=== PATIENT | female | born 1995 | race Caucasian/White ===

== ENCOUNTER → 2021-01-12 10:31 | Outpatient (BNVA) | payer BC, SELFPAY | PROVIDERS: Family Provider Family Medicine; PCP Family Medicine; Visit Provider Nurse Practitioner Family | DX: N39.0 Urinary tract infection, site not specified (principal) | CPT/HCPCS: 81000 ==

== ENCOUNTER → 2022-01-20 10:42 | Outpatient (BNVA) | payer BC, MEDICAID, SELFPAY | PROVIDERS: Family Provider Family Medicine; PCP Family Medicine; Visit Provider Clinical Nurse Specialist Adult Health | DX: R30.0 Dysuria (principal); N92.6 Irregular menstruation, unspecified | CPT/HCPCS: 81000; 81025 ==

== ENCOUNTER 2022-07-06 19:37 | Inpatient (IN) | payer BC, MEDICAID, SELFPAY ==
[2022-07-06] VITALS (17 sets, daily range): BP systolic 128–155; BP diastolic 88–113; PULSE 96–145; RESP 19–28; TEMP 37; O2SAT 99–100; BMI 20.3
[2022-07-06] MEDS: sodium chloride 0.9% 1,000 ML 999 ML IV ×2 (20:22→22:11)
--- NOTE | 2022-07-06 20:27 | ECG_ITS ---
[facility] Test Date: 2022-07-06 Pat Name: Lani Perry Department: Room: Gender: Female Home Health Clinician: : 1995 Requested By: Nick Paulino Order Number: [id number] Estefani MD: Adrián Ritter M.D. Measurements Intervals [place] Rate: 110 P: 55 IA: 132 QRS: 55 QRSD: 90 T: 45 QT: 335 QTc: 453 Interpretive Statements SINUS TACHYCARDIA MODERATE ST DEPRESSION [0.05+ mV ST DEPRESSION] No previous ECG available for comparison Electronically Signed On 07-07-2022 14:45:38 DUCT MAKER by Adrián Ritter M.D. [email or web address] hospitalBonuu! Loyaltybrecksville va / crille hospitalBlue Sky Biotech/store/OM/[id number]
[2022-07-06 20:30] LABS: Add Urine Microscopic? NO; Charge for UA Resulting for Rev; HCG Qualitative Urine. Negative (Negative)
[2022-07-06 20:35] LABS: Bilirubin Urine Neg (Negative); Blood Urine Neg (Negative); Glucose Urine UA Norm (Normal); Ketones Urine Negative (Negative); Leukocyte Esterase Urine Negative (Negative); Nitrate Urine Negative (Negative); Protein Urine Neg (Negative); Urine Appearance Clear (CLEAR); Urine Color Colorless (Yellow); Urobilinogen Urine Norm (Negative); pH Urine 5 (5-7)
[2022-07-06 20:35] LABS: Basophils # 0.1 10^3/uL (0.0-0.1); Basophils % 0.6 %; Eosinophils % 0.1 %; Hematocrit 42.6 % (37.0-47.0); Hemoglobin 14.2 g/dL (11.5-15.3); Lymphocytes # 3.9 10^3/uL (0.8-4.8); Lymphocytes % 44.2 %; Mean Corpuscular HGB Conc 33.3 g/dL (30.0-36.0); Mean Corpuscular Hemoglobin 28.2 pg (28.0-34.0); Mean Corpuscular Volume 84.5 fl (81-99); Mean Platelet Volume 9.5 fL (7.4-10.4); Monocytes # 0.6 10^3/uL (0.2-0.9); Monocytes % 6.4 %; Neutrophils % 48.3 %; Nucleated Red Blood Cells % 0 %; Platelet Count 371 10^3/cmm (130-400); Red Blood Count 5.04 10^6/uL (4.1-5.3); Red Cell Distribution Width 12.8 % (12.1-15.1); White Blood Count 8.9 10^3/uL (4.0-10.0)
[2022-07-06 20:40] LABS: Influenza A by IFA negative (Negative); Influenza B by IFA negative (Negative); SARS Covid-2 Antigen negative (Negative)
[2022-07-06 20:47] LABS: Amphetamines Screen Urine Negative (Negative); Barbiturates Screen Urine Negative (Negative); Benzodiazepines Screen Urine Negative (Negative); Cocaine Screen Urine Negative (Negative); Opiate Screen Urine Negative (Negative); PCP Screen Urine Negative (Negative); THC Screen Urine Negative (Negative)
[2022-07-06 20:57] LABS: Alanine Aminotransferase 9 U/L (0-33); Albumin Level 4.9 g/dL (3.5-5.2); Alcohol Level 74 mg/dL (0-10); Alkaline Phosphatase 56 U/L (35-105); Anion Gap 17.4 (5-19); Aspartate Amino Transferase 15 U/L (0-32); Blood Urea Nitrogen 11 mg/dL (6-20); Calcium 9.8 mg/dL (8.5-10.5); Carbon Dioxide 21 mmol/L (22-29); Chloride 103 mmol/L (98-107); Globulin 3.7 g/dL (1.3-4.6); Glucose 110 mg/dL (65-115); Osmolality Calculated 286 mOsm/kg (285-295); Potassium 3.4 mmol/L (3.5-5.1); Sodium 138 mmol/L (136-145); Thyroid Stimulating Hormone 1.72 uIU/mL (0.27-4.20); Total Bilirubin 0.3 mg/dL (0.15-1.2); Total Protein 8.6 g/dL (6.6-8.7)
[2022-07-06 21:06] LABS: Acetaminophen < 5.0 ug/mL (10-30); Salicylate < 0.3 mg/dL (3-10)
--- NOTE | 2022-07-06 21:19 | W.ED.OVERDOS ---
Documented by User: Nick Calhoun MD 07/06/22 23:08 HPI - Overdose General: Chief Complaint: Overdose Stated Complaint: intentional OD Time Seen by Provider: 07/06/22 20:02 Source: patient Limitations: no limitations History of Present Illness: This 26-year-old female with a past history of depression presents to the ER for evaluation following an intentional overdose on venlafaxine. She reportedly took about 40 to 45 pills of her 37.5 mg venlafaxine about an hour and half prior to ER presentation. She has been struggling with her depression for the last 1 week and things came to ahead tonight. She is frustrated that no one understands her and as a result she feels lonely. press officer that brought in patient has copies of text messages that patient sent to her ex, stating that she is giving up and she is tired of trying. Patient is very emotional and tearful. She denies any prior history of attempted suicide or admission to a psychiatric facility. She currently has no psychiatrist. Review of Systems Const: Denies: chills, body aches or change in appetite Eyes: Denies: change in vision or eye discharge ENMT: Denies: throat pain, dental pain or nasal discharge Card: Denies: chest pain or lightheadedness : Denies: dysuria Musc: Denies: neck pain or back pain Neuro: Denies: headache(s) or weakness in extremities Psych: Reports: depression, hopelessness, loss of interest and suicidal ideation Allan/Lymph: Denies: easy bruising All/Imm: Denies: urticaria, tongue swelling or facial swelling PFSH ED PFSH: Medical History Acute posterior anal fissure Anxiety Chronic diarrhea Urticaria, chronic Surgical History No history of previous surgery Family History Denies family history of Anesthesia complication Bleeding disorder Social History Smoking and tobacco status: never smoked Alcohol intake: never Female Reproductive History: Date of last menstrual period: 06/01/22 Physical Exam Const: COMMON NORMALS: patient oriented x3 and alert HENMT: COMMON NORMALS: normocephalic HEAD & SCALP: normocephalic Eye: COMMON NORMALS: EOMs intact bilaterally Neck/C-Spine: COMMON NORMALS: full ROM and supple Chest: COMMONS NORMALS: normal inspection of the chest Resp: COMMON NORMALS: normal respiratory effort, No retractions, No use of accessory muscles and clear to auscultation bilaterally AUSCULTATION: clear to auscultation bilaterally Cardio: COMMON NORMALS: regular rate, regular rhythm and No murmurs present (Cardio) RATE: regular rate RHYTHM: regular rhythm GI: COMMON NORMALS: Normal to inspection, nondistended, normoactive bowel sounds present and non-tender : COMMON NORMALS: Yes no CVA tenderness BLADDER/KIDNEY EXAM: Yes no CVA tenderness Back/Pelvis: COMMON NORMALS: no CVA tenderness and no thoracic nor lumbar tenderness Extremity: GENERAL: Yes normal exam except as noted Neuro: COMMON NORMALS: patient oriented x3 and no focal motor deficits SENSORIUM/ORIENTATION: Yes alert Psych: COMMON NORMALS: cooperative MOOD & AFFECT: Yes depressed mood, Yes sad and Yes tearful Course Vital Signs: Vital signs: Vital Signs Temperature 98.6 F 07/06/22 19:50 Pulse Rate 103 H 07/07/22 04:00 Respiratory Rate 14 07/07/22 04:00 Blood Pressure 144/104 07/07/22 04:00 Pulse Oximetry 92 07/07/22 04:00 Oxygen Delivery Me thod 07/06/22 19:50 MDM - Overdose Lab Data 07/06/22 19:50 07/06/22 19:50 Laboratory Results WBC 8.9 10^3/uL (4.0-10.0) 07/06/22 19:50 RBC 5.04 10^6/uL (4.1-5.3) 07/06/22 19:50 Hgb 14.2 g/dL (11.5-15.3) 07/06/22 19:50 Hct 42.6 % (37.0-47.0) 07/06/22 19:50 MCV 84.5 fl (81-99) 07/06/22 19:50 MCH 28.2 pg (28.0-34.0) 07/06/22 19:50 MCHC 33.3 g/dL (30.0-36.0) 07/06/22 19:50 RDW 12.8 % (12.1-15.1) 07/06/22 19:50 Plt Count 371 10^3/cmm (130-400) 07/06/22 19:50 MPV 9.5 fL (7.4-10.4) 07/06/22 19:50 Neut % (Auto) 48.3 % 07/06/22 19:50 Lymph % (Auto) 44.2 % 07/06/22 19:50 [place] % (Auto) 6.4 % 07/06/22 19:50 Eos % (Auto) 0.1 % 07/06/22 19:50 Baso % (Auto) 0.6 % 07/06/22 19:50 Neut # (Auto) 4.30 10^3/uL (1.8-7.7) 07/06/22 19:50 Lymph # (Auto) 3.9 10^3/uL (0.8-4.8) 07/06/22 19:50 [place] # (Auto) 0.6 10^3/uL (0.2-0.9) 07/06/22 19:50 Eos # (Auto) 0.0 10^3/uL (0.0-0.8) 07/06/22 19:50 Baso # (Auto) 0.1 10^3/uL (0.0-0.1) 07/06/22 19:50 Nucleated RBC % (auto) 0 % 07/06/22 19:50 Nucleated RBCs # 0.0 /100WBC 07/06/22 19:50 Sodium 138 mmol/L (136-145) 07/06/22 19:50 Potassium 3.4 mmol/L (3.5-5.1) L 07/06/22 19:50 Chloride 103 mmol/L (98-107) 07/06/22 19:50 Carbon Dioxide 21 mmol/L (22-29) L 07/06/22 19:50 Anion Gap 17.4 (5-19) 07/06/22 19:50 BUN 11 mg/dL (6-20) 07/06/22 19:50 Creatinine 0.6 mg/dL (0.5-0.9) 07/06/22 19:50 GFR Calculation 119.0 mL/min (90-130) 07/06/22 19:50 Glucose 110 mg/dL (65-115) 07/06/22 19:50 Calculated Osmolality 286 mOsm/kg (285-295) 07/06/22 19:50 Calcium 9.8 mg/dL (8.5-10.5) 07/06/22 19:50 Total Bilirubin 0.3 mg/dL (0.15-1.2) 07/06/22 19:50 AST 15 U/L (0-32) 07/06/22 19:50 ALT 9 U/L (0-33) 07/06/22 19:50 Alkaline Phosphatase 56 U/L (35-105) 07/06/22 19:50 Total Protein 8.6 g/dL (6.6-8.7) 07/06/22 19:50 Albumin 4.9 g/dL (3.5-5.2) 07/06/22 19:50 Globulin 3.7 g/dL (1.3-4.6) 07/06/22 19:50 TSH 1.72 uIU/mL (0.27-4.20) 07/06/22 19:50 HCG, Qual Negative (Negative) 07/06/22 20:18 Urine Color Colorless (Yellow) 07/06/22 20:18 Urine Appearance Clear (CLEAR) 07/06/22 20:18 Urine pH 5 (5-7) 07/06/22 20:18 Ur Specific [place] 1.010 (1.005-1.030) 07/06/22 20:18 Urine Protein Neg (Negative) 07/06/22 20:18 Urine Glucose (UA) Norm (Normal) 07/06/22 20:18 Urine Ketones Negative (Negative) 07/06/22 20:18 Urine Blood Neg (Negative) 07/06/22 20:18 Urine Nitrate Negative (Negative) 07/06/22 20:18 Urine Bilirubin Neg (Negative) 07/06/22 20:18 Urine Urobilinogen Norm mg/dL (Negative) 07/06/22 20:18 Ur Leukocyte Esterase Negative (Negative) 07/06/22 20:18 Salicylates < 0.3 mg/dL (3-10) L 07/06/22 19:50 Urine Opiates Screen Negative ng/mL (Negative) 07/06/22 20:18 Acetaminophen < 5.0 ug/mL (10-30) L 07/06/22 19:50 Ur Barbiturates Screen Negative ng/mL (Negative) 07/06/22 20:18 Ur Phencyclidine Scrn Negative ng/mL (Negative) 07/06/22 20:18 Ur Amphetamines Screen Negative ng/mL (Negative) 07/06/22 20:18 U Benzodiazepines Scrn Negative ng/mL (Negative) 07/06/22 20:18 Urine Cocaine Screen Negative ng/mL (Negative) 07/06/22 20:18 U Marijuana (THC) Screen Negative ng/mL (Negative) 07/06/22 20:18 Ethyl Alcohol 74 mg/dL (0-10) H 07/06/22 19:50 Influenza Type A Ag negative (Negative) 07/06/22 20:26 Influenza Type B Ag negative (Negative) 07/06/22 20:26 SARS-CoV-2 Ag (Rapid) negative (Negative) 07/06/22 20:26 EKG Data EKG 1: Interpretation: Sinus tachycardia, rate of 110, normal axis, normal intervals, T wave inversion in V2, no acute STEMI. Discharge Plan Discharge Patient Disposition: Admitted As Inpatient Clinical Impression: Drug overdose, Suicidal ideation Condition: Stable Coding Level of Care Code ED Freelance Graphic Designer for Chg Fwd Exam Comprehensive Documented by User: Leandro Rock MD 07/07/22 04:50 HPI - Overdose General: Chief Complaint: Overdose Stated Complaint: intentional OD Time Seen by Provider: 07/06/22 20:02 [facility] ED PFSH: Medical History Acute posterior anal fissure Anxiety Chronic diarrhea Urticaria, chronic Surgical History No history of previous surgery Family History Denies family history of Anesthesia complication Bleeding disorder Social History Smoking and tobacco status: never smoked Alcohol intake: never Course Vital Signs: Vital signs: Vital Signs Temperature 98.6 F 07/06/22 19:50 Pulse Rate 103 H 07/07/22 04:00 Respiratory Rate 14 07/07/22 04:00 Blood Pressure 144/104 07/07/22 04:00 Pulse Oximetry 92 07/07/22 04:00 Oxygen Delivery Me thod 07/06/22 19:50 MDM - Overdose Medical Decision Making Patient presents here with overdose attempt on Effexor patient's been observed here for 10 hours patient's showing no signs of severe toxicity she is medically cleared at this time I spoke to Dr. Ferrer and will admit to the psychiatric logan. Lab Data 07/06/22 19:50 07/06/22 19:50 Laboratory Results WBC 8.9 10^3/uL (4.0-10.0) 07/06/22 19:50 RBC 5.04 10^6/uL (4.1-5.3) 07/06/22 19:50 Hgb 14.2 g/dL (11.5-15.3) 07/06/22 19:50 Hct 42.6 % (37.0-47.0) 07/06/22 19:50 MCV 84.5 fl (81-99) 07/06/22 19:50 MCH 28.2 pg (28.0-34.0) 07/06/22 19:50 MCHC 33.3 g/dL (30.0-36.0) 07/06/22 19:50 RDW 12.8 % (12.1-15.1) 07/06/22 19:50 Plt Count 371 10^3/cmm (130-400) 07/06/22 19:50 MPV 9.5 fL (7.4-10.4) 07/06/22 19:50 Neut % (Auto) 48.3 % 07/06/22 19:50 Lymph % (Auto) 44.2 % 07/06/22 19:50 [place] % (Auto) 6.4 % 07/06/22 19:50 Eos % (Auto) 0.1 % 07/06/22 19:50 Baso % (Auto) 0.6 % 07/06/22 19:50 Neut # (Auto) 4.30 10^3/uL (1.8-7.7) 07/06/22 19:50 Lymph # (Auto) 3.9 10^3/uL (0.8-4.8) 07/06/22 19:50 [place] # (Auto) 0.6 10^3/uL (0.2-0.9) 07/06/22 19:50 Eos # (Auto) 0.0 10^3/uL (0.0-0.8) 07/06/22 19:50 Baso # (Auto) 0.1 10^3/uL (0.0-0.1) 07/06/22 19:50 Nucleated RBC % (auto) 0 % 07/06/22 19:50 Nucleated RBCs # 0.0 /100WBC 07/06/22 19:50 Sodium 138 mmol/L (136-145) 07/06/22 19:50 Potassium 3.4 mmol/L (3.5-5.1) L 07/06/22 19:50 Chloride 103 mmol/L (98-107) 07/06/22 19:50 Carbon Dioxide 21 mmol/L (22-29) L 07/06/22 19:50 Anion Gap 17.4 (5-19) 07/06/22 19:50 BUN 11 mg/dL (6-20) 07/06/22 19:50 Creatinine 0.6 mg/dL (0.5-0.9) 07/06/22 19:50 GFR Calculation 119.0 mL/min (90-130) 07/06/22 19:50 Glucose 110 mg/dL (65-115) 07/06/22 19:50 Calculated Osmolality 286 mOsm/kg (285-295) 07/06/22 19:50 Calcium 9.8 mg/dL (8.5-10.5) 07/06/22 19:50 Total Bilirubin 0.3 mg/dL (0.15-1.2) 07/06/22 19:50 AST 15 U/L (0-32) 07/06/22 19:50 ALT 9 U/L (0-33) 07/06/22 19:50 Alkaline Phosphatase 56 U/L (35-105) 07/06/22 19:50 Total Protein 8.6 g/dL (6.6-8.7) 07/06/22 19:50 Albumin 4.9 g/dL (3.5-5.2) 07/06/22 19:50 Globulin 3.7 g/dL (1.3-4.6) 07/06/22 19:50 TSH 1.72 uIU/mL (0.27-4.20) 07/06/22 19:50 HCG, Qual Negative (Negative) 07/06/22 20:18 Urine Color Colorless (Yellow) 07/06/22 20:18 Urine Appearance Clear (CLEAR) 07/06/22 20:18 Urine pH 5 (5-7) 07/06/22 20:18 Ur Specific [place] 1.010 (1.005-1.030) 07/06/22 20:18 Urine Protein Neg (Negative) 07/06/22 20:18 Urine Glucose (UA) Norm (Normal) 07/06/22 20:18 Urine Ketones Negative (Negative) 07/06/22 20:18 Urine Blood Neg (Negative) 07/06/22 20:18 Urine Nitrate Negative (Negative) 07/06/22 20:18 Urine Bilirubin Neg (Negative) 07/06/22 20:18 Urine Urobilinogen Norm mg/dL (Negative) 07/06/22 20:18 Ur Leukocyte Esterase Negative (Negative) 07/06/22 20:18 Salicylates < 0.3 mg/dL (3-10) L 07/06/22 19:50 Urine Opiates Screen Negative ng/mL (Negative) 07/06/22 20:18 Acetaminophen < 5.0 ug/mL (10-30) L 07/06/22 19:50 Ur Barbiturates Screen Negative ng/mL (Negative) 07/06/22 20:18 Ur Phencyclidine Scrn Negative ng/mL (Negative) 07/06/22 20:18 Ur Amphetamines Screen Negative ng/mL (Negative) 07/06/22 20:18 U Benzodiazepines Scrn Negative ng/mL (Negative) 07/06/22 20:18 Urine Cocaine Screen Negative ng/mL (Negative) 07/06/22 20:18 U Marijuana (THC) Screen Negative ng/mL (Negative) 07/06/22 20:18 Ethyl Alcohol 74 mg/dL (0-10) H 07/06/22 19:50 Influenza Type A Ag negative (Negative) 07/06/22 20:26 Influenza Type B Ag negative (Negative) 07/06/22 20:26 SARS-CoV-2 Ag (Rapid) negative (Negative) 07/06/22 20:26 Discharge Plan Discharge Patient Disposition: Admitted As Inpatient Clinical Impression: Drug overdose, Suicidal ideation Condition: Stable Coding Level of Care Code ED Freelance Graphic Designer for Rylee Fwd Exam Comprehensive
--- NOTE | 2022-07-06 22:46 | PC.NURSE ---
POISON CONTROL CALLED FOR UPDATE. CURRENT SET OF VITALS AND PATIENT CONDITION GIVEN.
[2022-07-07] VITALS (91 sets, daily range): BP systolic 117–158; BP diastolic 86–118; PULSE 80–134; RESP 13–28; TEMP 36.7–37.2; O2SAT 92–100
[2022-07-07] MEDS: LORazepam 2 mg/mL INJ 1 mL 1 MG IVP (00:37)
[2022-07-07] MEDS: sodium chloride 0.9% 1,000 ML 999 ML IV (00:37)
--- NOTE | 2022-07-07 02:42 | PC.NURSE ---
Spoke with poison control. Updated on plan of care.
--- NOTE | 2022-07-07 16:20 | PC.NURSE ---
admissions assessment competed. alert, oriented, tearful. pt rated anxiety 7 and depression 7-8. pt reports she can get short and irritable when overstimulated. denies anger, si/hi/avh, pt states appetite has been up and down. pt reports trouble falling and staying asleep. contracts for safety. pt states she is tired and is requested to rest
[2022-07-07] MEDS: nicotine 2 mg Gum BUCCAL (20:49)
[2022-07-08 07:55] VITALS: BP 138/85; PULSE 119; RESP 16; TEMP 37; O2SAT 95
--- NOTE | 2022-07-08 11:36 | P.NPUHP_ITS ---
Providers/Chief Complaint Admitting Physician: Tony Ferrer MD Primary Care Provider: Michael Huerta MD Chief Complaint: intentional OD HPI NPU History of Present Illness Lani Perry is a 26 year old female who was admitted to the neuropsychiatric unit for further evaluation and treatment after she had presented to the emergency room having consumed approximately 45 pills of 37.5 mg of venlafaxine approximately 1 hour prior to her presentation there. Patient had reported that she has been feeling more depressed over the past 10 days. She had reported that on the day of her presentation in the emergency department she had a panic attack for the first time in her life with reports of chest pain, shortness of breath numbing and tingling in her fingers,difficulty swallowing, and feelings as if she were going to . She reported that the panic attack was uncued. She reports that within 10 minutes she had felt that she wanted to and decided to take the pills of Effexor with the intent to . The patient has reported increased crying, increased feelings of hopelessness, sleep continuity disruption, anhedonia, and increased depressed mood with frequent episodes of crying all over the past 10 days. She reports no trigger to her initial worsening of depression over the past 10 days. She had reported that she had never previously had thoughts of hurting herself. She reports that she chronically struggles with managing her worry and describes having difficulties being in crowded places. She reports having frequent headaches and often complains of neck tension. She also reports having difficulties with worrying excessively about various things and describes having anxiety that is often out of control. She had reported increased apathy. She had reported in the last week that she had been sleeping approximately 5 hours a night. She had reported that her initial depression began approximately 3 years ago after she had been going through a divorce. She denied any clear history of lalit. She denied any history of psychotic symptoms. She had admitted to having had a few drinks and her blood alcohol level was 74 on admission. She reported no history of alcohol withdrawal symptoms in the past. She denied any illicit drug use in the past or present. Patient had reported a history of chronic problems with distractibility, frequent boredom, daydreaming, and an inability to complete tasks in a timely fashion. Inpatient psychiatric history: None Outpatient psychiatric history: None, she had reported previously receiving treatment for depression with medications prescribed by her primary care physician. Previous medications: control, Effexor 37.5 mg twice a day Allergies: No known drug allergies Family psychiatric history the patient's half sister has been diagnosed with bipolar disorder, patient's mother has been diagnosed with depression, patient's daughter has been diagnosed with anxiety and depression. Surgeries: None Drug and alcohol history: The patient reports occasional use of alcohol but has no other reports of drug use or alcohol use. Legal history: None Social history: Patient lives alone in [facility]. She had previously been 1 time for 9 years and was approximately 3 years ago. She has 3 children ages 11 5 and 3 and reports having a good relationship with her ex- as they share joint custody. She reports being raised by her mother in [place] as her parents had when the patient was 9 years old. She has a half-brother and half-sister and denies any history of trauma or abuse. She had reported having had anxiety as a child. She reports having her first child at the age of 13. 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 Meds NPU Home Medications Medication Instructions Recorded Confirmed Last Taken Type norgestimate 0.25 mg-ethinyl 1 tab PO DAILY #84 tabs 01/20/22 07/07/22 Unknown Rx estradiol 35 mcg tablet (Lesley) venlafaxine 37.5 mg tablet 37.5 mg PO BID 07/07/22 07/07/22 07/06/22 History Allergies Allergy/AdvReac Type Severity Reaction Status Date / Time No Known Allergies Allergy Verified 07/07/22 10:02 PFS NPU PFSH: Medical History Acute posterior anal fissure Anxiety Chronic diarrhea Urticaria, chronic Surgical History No history of previous surgery Family History Denies family history of Anesthesia complication Bleeding disorder Social History Smoking and tobacco status: never smoked Alcohol intake: never Mental Status Exam MSE Comments: Casually dressed white female who appeared her stated age. There was evidence of psychomotor retardation. Her gait appeared adequate. Her hygiene was fair. She was pleasant and cooperative on interview. Her speech was normal in regards to rate rhythm and prosody. Her mood was described as depressed. Her affect was restricted in range and mood-congruent. There was no clear evidence of delusional thinking. She did not appear to be responding to internal stimuli. She denied any auditory or visual loose [place]. Her attention span at times appeared variable. Recent and remote memory were grossly intact. Her insight was poor. Her judgment was poor as well. Her impulse control remained poor. Vitals/I&O/Wt Last Vital Signs Temp 98.6 F 07/08/22 07:55 Pulse 119 H 07/08/22 07:55 Resp 16 07/08/22 07:55 BP 138/85 07/08/22 07:55 Pulse Ox 95 07/08/22 07:55 O2 Del Method 07/08/22 07:55 Weight last 48 hrs Weight 52.163 kg Data NPU 07/06/22 19:50 07/06/22 19:50 A&P Assessment and plan (1) Major depressive disorder, recurrent: (2) JIL (generalized anxiety disorder): (3) Drug overdose: (4) Suicidal ideation: Plan This is a 26-year-old white female with no prior history of inpatient hospitalizations admitted with worsening depression in the context of a uncued panic attack leading to an impulsive overdose on her venlafaxine with suicidal intent. #1. Patient had reported previous success with treatment of Zoloft in other family members and it appears to be a good medication to target both her anxiety and depression. #2. 15-minute checks for safety on the unit. #3. engage patient in individual group and milieu therapy #4. encourage sober living treatment at the highest level of care to which patient is willing to commit. Involuntary Hold Information 96 Hour Hold: 96 Hour Involuntary Admission: Yes 96 Hour Hold Ending Date: 07/13/22 96 Hour Hold Ending Time: 03:18 Attestations NPU Medical Necessity Statement*: Inpatient hospitalization is medically necessary and the clinically appropriate intervention at this time. We will monitor medications and make changes as indicated. Patient will be hospitalized for over 2 midnights with a likely length of stay of 3 to 5 days Coding Level of Care Code New Pt Acute Code for Chg Fwd Patient Type New History Problem Focused Exam Problem Focused Medical Decision Making Straight Forward Diagnoses Major depressive disorder, recurrent F33.9 JIL (generalized anxiety disorder) F41.1 Drug overdose T50.901A Suicidal ideation R45.851
[2022-07-08] MEDS: blistex lip oint 7 gm Tube 1 APPLIC TOPICAL (11:52)
[2022-07-08 14:00] VITALS: BP 108/71; PULSE 87; RESP 17; TEMP 36.9; O2SAT 97
[2022-07-08 20:38] VITALS: BP 107/70; PULSE 76; RESP 17; TEMP 36.7; O2SAT 99
[2022-07-09] MEDS: sertraline 50 mg Tablet 25 MG PO (09:07)
[2022-07-09 14:00] VITALS: BP 112/70; PULSE 75; RESP 16; TEMP 36.8; O2SAT 100
--- NOTE | 2022-07-09 16:33 | P.NPUPN_ITS ---
Subjective NPU Subjective: The patient is a 27-year-old white female admitted after an overdose on Effexor with a history of generalized anxiety disorder and major depressive disorder. Patient had continue to report depressed mood with continued problems with chronic anxiety. She had reported that she had often engaged in keeping her feelings to herself and stated that her family members had not noticed how distressed she was prior to this event. She had expressed desire to return to work but stated that she still felt that she needed to be in the hospital. She had endorsed continued tearfulness depressed mood low energy and low motivation that remained unchanged. She reported no side effects from her Zoloft which was started today. Mental Status Exam 2 MSE Comments: Casually dressed white female who appeared her stated age. There was evidence of psychomotor retardation. Her gait appeared adequate. Her hygiene was fair. She was pleasant and cooperative on interview. Her speech was normal in regards to rate rhythm and prosody. Her mood was described as depressed. Her affect was tearful at times on interview. There was no clear evidence of delusional thinking. She did not appear to be responding to internal stimuli. She denied any auditory or visual hallucinations. Her attention span at times appeared variable. Recent and remote memory were grossly intact. Her insight was poor. Her judgment was poor as well. Her impulse control remained poor. Vitals/I&O/Wt Last Vital Signs Temp 98.3 F 07/09/22 14:00 Pulse 75 07/09/22 14:00 Resp 16 07/09/22 14:00 BP 112/70 07/09/22 14:00 Pulse Ox 100 07/09/22 14:00 O2 Del Method 07/08/22 20:38 Data NPU 07/06/22 19:50 07/06/22 19:50 A&P Assessment and plan (1) Major depressive disorder, recurrent: (2) JIL (generalized anxiety disorder): (3) ADHD: (4) Suicidal ideation: (5) Drug overdose: Plan This is a 26-year-old white female with no prior history of inpatient hospitalizations admitted with worsening depression in the context of a uncued panic attack leading to an impulsive overdose on her venlafaxine with suicidal intent. #1. Increase Zoloft to 50mg in am. #2. 15-minute checks for safety on the unit. #3. engage patient in individual group and milieu therapy #4. encourage sober living treatment at the highest level of care to which patient is willing to commit. Involuntary Hold Information 96 Hour Hold: 96 Hour Involuntary Admission: Yes 96 Hour Hold Ending Date: 07/13/22 96 Hour Hold Ending Time: 03:18 Attestations NPU Medical Necessity Statement*: Inpatient hospitalization is medically necessary and the clinically appropriate intervention at this time. We will monitor medications and make changes as indicated. Patient will be hospitalized for over 2 midnights with a likely length of stay of 3 to 5 days Coding Level of Care Code Established Pt Acute Code for Chg Fwd Patient Type Established History Problem Focused Exam Problem Focused Medical Decision Making Straight Forward Diagnoses Major depressive disorder, recurrent F33.9 JIL (generalized anxiety disorder) F41.1 ADHD F90.9 Suicidal ideation R45.851 Drug overdose T50.901A
[2022-07-09 21:41] VITALS: BP 138/76; PULSE 113; RESP 16; TEMP 36.3; O2SAT 96
[2022-07-10] MEDS: sertraline 50 mg Tablet 25 MG PO ×2 (08:34→17:47)
--- NOTE | 2022-07-10 15:27 | P.NPUPN_ITS ---
Subjective NPU Subjective: The patient is a 27-year-old white female admitted after an overdose on Effexor with a history of generalized anxiety disorder and major depressive disorder. She had reported tolerating her Zoloft without any particular issues. She reports having a good visit from her mother and her brother yesterday. She had reported continued depression but reported feeling more hopeful and stated that she was motivated to see her children this weekend. She had reported continued struggles with management of anxiety but stated that she was hopeful about receiving psychotherapy again at that [facility]. She denied any thoughts of hurting herself. She had expressed a desire to communicate her feelings better with her family. Patient had reported an extended history of distractibility or attention span difficulties with staying on task frequent daydreaming along with difficulties with initiating of complicated tasks that may require a significant amount of sustained effort. Mental Status Exam MSE Comments: Casually dressed white female who appeared her stated age. There was evidence of mild psychomotor retardation. Her gait appeared adequate. Her hygiene was fair. She was pleasant and cooperative on interview. Her speech was normal in regards to rate rhythm and prosody. Her mood was described as depressed. Her affect was restricted today but brief periods of laughing and smiling appreciated. She denied any homicidal or suicidal ideation at this time. There was no clear evidence of delusional thinking. She did not appear to be responding to internal stimuli. She denied any auditory or visual hallucinations. Her attention span at times appeared variable. Recent and r emote memory were grossly intact. Her insight was poor. Her judgment was poor as well. Her impulse control remained poor. Vitals/I&O/Wt Last Vital Signs Temp 97.3 F L 07/09/22 21:41 Pulse 113 H 07/09/22 21:41 Resp 16 07/09/22 21:41 BP 138/76 07/09/22 21:41 Pulse Ox 96 07/09/22 21:41 O2 Del Method 07/09/22 21:41 Data NPU 07/06/22 19:50 07/06/22 19:50 A&P Assessment and plan (1) Major depressive disorder, recurrent: (2) JIL (generalized anxiety disorder): (3) ADHD: (4) Suicidal ideation: (5) Drug overdose: Plan This is a 26-year-old white female with no prior history of inpatient hospitalizations admitted with worsening depression in the context of a uncued panic attack leading to an impulsive overdose on her venlafaxine with suicidal intent. #1. Increase Zoloft to 75mg in am. #2. 15-minute checks for safety on the unit. #3. engage patient in individual group and milieu therapy #4. encourage sober living treatment at the highest level of care to which patient is willing to commit. #5. Referral for psychotherapy and outpatient psychiatry, likely discharge tommorow. Involuntary Hold Information 96 Hour Hold: 96 Hour Involuntary Admission: Yes 96 Hour Hold Ending Date: 07/13/22 96 Hour Hold Ending Time: 03:18 Attestations NPU Medical Necessity Statement*: Inpatient hospitalization is medically necessary and the clinically appropriate intervention at this time. We will monitor medications and make changes as indicated. Patient will be hospitalized for over 2 midnights with a likely length of stay of 1-2 days. Coding Level of Care Code Established Pt Acute Code for Chg Fwd Patient Type Established History Problem Focused Exam Problem Focused Medical Decision Making Straight Forward Diagnoses Major depressive disorder, recurrent F33.9 JIL (generalized anxiety disorder) F41.1 ADHD F90.9 Suicidal ideation R45.851 Drug overdose T50.901A
[2022-07-10 23:33] VITALS: BP 109/71; PULSE 69; RESP 16; TEMP 36.6; O2SAT 99
[2022-07-11] MEDS: sertraline 50 mg Tablet PO (09:29)
--- NOTE | 2022-07-11 10:47 | P.NPUDS_ITS ---
Diagnoses at Discharge Discharge Diagnosis (1) Major depressive disorder, recurrent: Status: Acute (2) JIL (generalized anxiety disorder): Status: Acute (3) ADHD: Status: Acute (4) Suicidal ideation: Status: Acute (5) Drug overdose: Status: Acute Reason for Visit Reason for Visit: intentional OD Brief History: History of Present Illness Lani Perry is a 26 year old female who was admitted to the neuropsychiatric unit for further evaluation and treatment after she had presented to the emergency room having consumed approximately 45 pills of 37.5 mg of venlafaxine approximately 1 hour prior to her presentation there.? Patient had reported that she has been feeling more depressed over the past 10 days.? She had reported that on the day of her presentation in the emergency department she had a panic attack for the first time in her life with reports of chest pain, shortness of breath numbing and tingling in her fingers,difficulty swallowing, and feelings as if she were going to .? She reported that the panic attack was uncued.? She reports that within 10 minutes she had felt that she wanted to and decided to take the pills of Effexor with the intent to .? The patient has reported increased crying, increased feelings of hopelessness, sleep continuity disruption, anhedonia, and increased depressed mood with frequent episodes of crying all over the past 10 days.? She reports no trigger to her initial worsening of depression over the past 10 days.? She had reported that she had never previously had thoughts of hurting herself.? She reports that she chronically struggles with managing her worry and describes having difficulties being in crowded places.? She reports having frequent headaches and often complains of neck tension.? She also reports having difficulties with worrying excessively about various things and describes having anxiety that is often out of control.? She had reported increased apathy.? She had reported in the last week that she had been sleeping approximately 5 hours a night.? She had reported that her initial depression began approximately 3 years ago after she had been going through a divorce.? She denied any clear history of lalit.? She denied any history of psychotic symptoms.? She had admitted to having had a few drinks and her blood alcohol level was 74 on admission.? She reported no history of alcohol withdrawal symptoms in the past.? She denied any illicit drug use in the past or present.? Patient had reported a history of chronic problems with distractibility, frequent boredom, daydreaming, and an inability to complete tasks in a timely fashion. Inpatient psychiatric history: None Outpatient psychiatric history: None, she had reported previously receiving treatment for depression with medications prescribed by her primary care ph ysician. Previous medications: control, Effexor 37.5 mg twice a day Allergies: No known drug allergies Family psychiatric history the patient's half sister has been diagnosed with bipolar disorder, patient's mother has been diagnosed with depression, patient's daughter has been diagnosed with anxiety and depression. Surgeries: None Drug and alcohol history: The patient reports occasional use of alcohol but has no other reports of drug use or alcohol use. Legal history: None Social history: Patient lives alone in [place] [facility].? She had previously been 1 time for 9 years and was approximately 3 years ago.? She has 3 children ages 11 5 and 3 and reports having a good relationship with her ex- as they share joint custody.? She reports being raised by her mother in [place] as her parents had when the patient was 9 years old.? She has a half-brother and half-sister and denies any history of trauma or abuse.? She had reported having had anxiety as a child.? She reports having her first child at the age of 13.? 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 Hospital Course Hospital Course Discharge Summary: During the hospitalization, patient had routine laboratory studies which were within normal limits except for few outliers. Additionally there was a general medical evaluation which was also within normal limits and revealed no new acute processes. At the time of discharge, lethality was denied and psychosis was resolving. Mood and anxiety were well managed. Patient endorsed a plan to avoid all drugs of abuse and follow-up with the aftercare recommendations of the treatment team. Patient was evaluated and deemed to be absent credible lethality, and had achieved the maximum benefit from an inpatient hospitalization, so was discharged. She appeared to show symptoms suggestive of ADHD and it is recommended that she be considered for a trial of stimulants to target ADHD. Involuntary Hold Information 96 Hour Hold: 96 Hour Involuntary Admission: Yes 96 Hour Hold Ending Date: 07/13/22 96 Hour Hold Ending Time: 03:18 Mental Status Exam MSE Comments: Casually dressed white female who appeared her stated age. There was no evidence of psychomotor retardation. Her gait appeared adequate. Her hygiene was fair. She was pleasant and cooperative on interview. Her speech was normal in regards to rate rhythm and prosody. Her mood was described as better. Her affect was less restricted today. She denied any homicidal or suicidal ideation at this time. There was no clear evidence of delusional thinking. She did not appear to be responding to internal stimuli. She denied any auditory or visual hallucinations. Her attention span at times appeared variable. Recent and remote memory were grossly intact. Her insight was improved. Her judgment was better. Her impulse control remained fair. Discharge Data Studies Completed and Pending: Laboratory Results WBC 8.9 10^3/uL (4.0- 10.0) 07/06/22 19:50 RBC 5.04 10^6/uL (4.1 -5.3) 07/06/22 19:50 Hgb 14.2 g/dL (11.5-1 5.3) 07/06/22 19:50 Hct 42.6 % (37.0-47.0 ) 07/06/22 19:50 MCV 84.5 fl (81-99) 07/06/22 19:50 MCH 28.2 pg (28.0-34. 0) 07/06/22 19:50 MCHC 33.3 g/dL (30.0-3 6.0) 07/06/22 19:50 RDW 12.8 % (12.1-15.1 ) 07/06/22 19:50 Plt Count 371 10^3/cmm (130 -400) 07/06/22 19:50 MPV 9.5 fL (7.4-10.4) 07/06/22 19:50 Neut % (Auto) 48.3 % 07/06/22 19:50 Lymph % (Auto) 44.2 % 07/06/22 19:50 Dickey % (Auto) 6.4 % 07/06/22 19:50 Eos % (Auto) 0.1 % 07/06/22 19:50 Baso % (Auto) 0.6 % 07/06/22 19:50 Neut # (Auto) 4.30 10^3/uL (1.8 -7.7) 07/06/22 19:50 Lymph # (Auto) 3.9 10^3/uL (0.8- 4.8) 07/06/22 19:50 Dickey # (Auto) 0.6 10^3/uL (0.2- 0.9) 07/06/22 19:50 Eos # (Auto) 0.0 10^3/uL (0.0- 0.8) 07/06/22 19:50 Baso # (Auto) 0.1 10^3/uL (0.0- 0.1) 07/06/22 19:50 Nucleated RBC % (a uto) 0 % 07/06/22 19:50 Nucleated RBCs # 0.0 /100WBC 07/06/22 19:50 Sodium 138 mmol/L (136-1 45) 07/06/22 19:50 Potassium 3.4 mmol/L (3.5-5 .1) L 07/06/22 19:50 Chloride 103 mmol/L (98-10 7) 07/06/22 19:50 Carbon Dioxide 21 mmol/L (22-29) L 07/06/22 19:50 Anion Gap 17.4 (5-19) 07/06/22 19:50 BUN 11 mg/dL (6-20) 07/06/22 19:50 Creatinine 0.6 mg/dL (0.5-0. 9) 07/06/22 19:50 GFR Calculation 119.0 mL/min (90- 130) 07/06/22 19:50 Glucose 110 mg/dL (65-115 ) 07/06/22 19:50 Calculated Osmolal ity 286 mOsm/kg (285- 295) 07/06/22 19:50 Calcium 9.8 mg/dL (8.5-10 .5) 07/06/22 19:50 Total Bilirubin 0.3 mg/dL (0.15-1 .2) 07/06/22 19:50 AST 15 U/L (0-32) 07/06/22 19:50 ALT 9 U/L (0-33) 07/06/22 19:50 Alkaline Phosphata se 56 U/L (35-105) 07/06/22 19:50 Total Protein 8.6 g/dL (6.6-8.7 ) 07/06/22 19:50 Albumin 4.9 g/dL (3.5-5.2 ) 07/06/22 19:50 Globulin 3.7 g/dL (1.3-4.6 ) 07/06/22 19:50 TSH 1.72 uIU/mL (0.27 -4.20) 07/06/22 19:50 HCG, Qual Negative (Negati ve) 07/06/22 20:18 Urine Color Colorless (Yello w) 07/06/22 20:18 Urine Appearance Clear (CLEAR) 07/06/22 20:18 Urine pH 5 (5-7) 07/06/22 20:18 Ur Specific Gravit y 1.010 (1.005-1.0 30) 07/06/22 20:18 Urine Protein Neg (Negative) 07/06/22 20:18 Urine Glucose (UA) Norm (Normal) 07/06/22 20:18 Urine Ketones Negative (Negati ve) 07/06/22 20:18 Urine Blood Neg (Negative) 07/06/22 20:18 Urine Nitrate Negative (Negati ve) 07/06/22 20:18 Urine Bilirubin Neg (Negative) 07/06/22 20:18 Urine Urobilinogen Norm mg/dL (Negat link) 07/06/22 20:18 Ur Leukocyte Casie ase Negative (Negati ve) 07/06/22 20:18 Salicylates < 0.3 mg/dL (3-10 ) L 07/06/22 19:50 Urine Opiates Scre en Negative ng/mL (N egative) 07/06/22 20:18 Acetaminophen < 5.0 ug/mL (10-3 0) L 07/06/22 19:50 Ur Barbiturates Sc reen Negative ng/mL (N egative) 07/06/22 20:18 Ur Phencyclidine S crn Negative ng/mL (N egative) 07/06/22 20:18 Ur Amphetamines Sc reen Negative ng/mL (N egative) 07/06/22 20:18 U Benzodiazepines Scrn Negative ng/mL (N egative) 07/06/22 20:18 Urine Cocaine Scre en Negative ng/mL (N egative) 07/06/22 20:18 U Marijuana (THC) Screen Negative ng/mL (N egative) 07/06/22 20:18 Ethyl Alcohol 74 mg/dL (0-10) H 07/06/22 19:50 Influenza Type A A g negative (Negati ve) 07/06/22 20:26 Influenza Type B A g negative (Negati ve) 07/06/22 20:26 SARS-CoV-2 Ag (Rap id) negative (Negati ve) 07/06/22 20:26 Vitals: Last Vital Signs Temp 97.8 F 07/10/22 23:33 Pulse 69 07/10/22 23:33 Resp 16 07/10/22 23:33 BP 109/71 07/10/22 23:33 Pulse Ox 99 07/10/22 23:33 O2 Del Method 07/09/22 21:41 Discharge Plan Discharge Patient Disposition: Home Condition: Stable Prescriptions: New sertraline 50 mg Tablet 75 mg PO DAILY 30 Days Qty: 45 1RF Continued norgestimate-ethinyl estradiol [Lesley] 0.25-35 mg-mcg tablet 1 tab PO DAILY Qty: 84 4RF Discontinued venlafaxine 37.5 mg tablet 37.5 mg PO BID Discharge Orders: Discharge Order (Routine); Ordered 07/11/22 Ordered By: Addi Dao Referrals: [facility] [Other] [facility] [Outside] - 07/16/22 8:30 am (Initial appointment.) Michael Huerta MD [Primary Care Provider] - 07/17/22 10:20 am (Follow up) Discharge Diet: Advance as tolerated Discharge Activity: Resume usual activity Patient Instructions: Sertraline (By mouth) (Zoloft), ADHD in Adults (ED), Generalized Anxiety Disorder (GEN), Opioid Safety Discharge Attestations NPU Time Spent in Discharge Care*: less than 30 min Specific Discharge Activities: Specific discharge activities: educating patient, documenting/other paperwork and evaluating patient/reviewing data Coding Level of Care Code Established Pt Acute Chg FW DC note Patient Type Established History Problem Focused Exam Problem Focused Medical Decision Making Straight Forward Diagnoses Major depressive disorder, recurrent F33.9 JIL (generalized anxiety disorder) F41.1 ADHD F90.9 Suicidal ideation R45.851 Drug overdose T50.901A
[2022-07-11 10:55] VITALS: BP 109/71; PULSE 69; RESP 16; TEMP 36.6; O2SAT 99
== END 2022-07-11 11:29 | disposition home or self-care (01) | DRG 918 ==
LOC: ER 07-07 04:18 → NP 07-07 14:31
PROVIDERS: Family Medicine; Admitting Provider Psychiatry & Neurology Psychiatry; Emergency Provider Emergency Medicine; PCP Family Medicine; Visit Provider Psychiatry & Neurology Psychiatry
DX: T43.212A Poisoning by selective serotonin and norepinephrine reuptake inhibitors, intentional self-harm, initial encounter (principal); R45.851 Suicidal ideations; F33.9 Major depressive disorder, recurrent, unspecified; F41.0 Panic disorder [episodic paroxysmal anxiety]; F10.129 Alcohol abuse with intoxication, unspecified; Y90.3 Blood alcohol level of 60-79 mg/100 ml; F41.1 Generalized anxiety disorder
CPT/HCPCS: 80053; 80306; 80307; 81003; 81025; 84443; 85025; 87426; 87804; 93005; 97150; 97165; 99285; J2060; J7030

== ENCOUNTER → 2023-11-24 15:03 | Outpatient (BNVA) | payer BC, MEDICAID, SELFPAY | PROVIDERS: PCP Family Medicine; Visit Provider Clinical Nurse Specialist Adult Health | DX: R19.7 Diarrhea, unspecified (principal) | CPT/HCPCS: 80053 ==

== ENCOUNTER → 2023-11-25 12:59 | Outpatient (BNVA) | payer BC, MEDICAID, SELFPAY | PROVIDERS: PCP Family Medicine; Visit Provider Family Medicine | DX: R19.7 Diarrhea, unspecified (principal) | CPT/HCPCS: 83630; 87045; 87046; 87427; 87449; 87493 ==

== ENCOUNTER 2023-12-08 19:30 | Emergency (ER) | payer MEDICAID, SELFPAY ==
[2023-12-08 19:38] VITALS: BP 135/81; PULSE 83; RESP 15; TEMP 36.6; O2SAT 98
--- NOTE | 2023-12-08 19:56 | CTR_ITS ---
PROCEDURE INFORMATION: Exam: CT Head Without Contrast Exam date and time: 12/08/2023 8:02 PM Age: 28 years old Clinical indication: Stroke-like symptoms; Other: Pupil dilated; Additional info: Pupil dilation TECHNIQUE: Imaging protocol: Computed tomography of the head without contrast. Radiation optimization: All CT scans at this facility use at least one of these dose optimization techniques: automated exposure control; mA and/or kV adjustment per patient size (includes targeted exams where dose is matched to clinical indication); or iterative reconstruction. Other technique: STROKE PROTOCOL was implemented. COMPARISON: No relevant prior studies available. RADIATION DOSE METRICS: Total DLP (mGy-cm): 1027 FINDINGS: Brain: Normal. No hemorrhage. Unremarkable white matter. No mass effect. Cerebral ventricles: No ventriculomegaly. Paranasal sinuses: Visualized sinuses are unremarkable. No fluid levels. Mastoid air cells: Visualized mastoid air cells are well aerated. Bones: Unremarkable. No acute fracture. Soft tissues: Unremarkable. CT/CT head wo con* [id number] IMPRESSION: No acute intracranial abnormality. ASSESSMENT: ASPECTS ([place] Stroke Program Early CT Score) is 10.
--- NOTE | 2023-12-08 19:58 | W.ED.EYEPROB ---
HPI - Eye Problem General: Chief complaint: Eye Problems Stated complaint: Eye pain Time Seen by Provider: 12/08/23 19:50 Source: patient Mode of arrival: ambulatory Limitations: no limitations History of Present Illness: 28-year-old female who states that she has had pupil dilation along with some left eye pain today. She states the pain is worse with bright lights she states she did hit her head yesterday on a sink counter while having sex and it seems like since when this started. She denies any slurred speech. She had some slight blurry vision does wear contacts denies any weakness. Associated symptoms: Denies fever(s), headache(s), nausea, neck pain or vomiting Review of Systems Const: Denies: fever(s), chills, body aches or change in appetite Eyes: Reports: eye discomfort ENMT: Denies: throat pain or dental pain Card: Denies: chest pain Resp: Denies: dyspnea GI: Denies: abdominal pain, nausea, vomiting or diarrhea Musc: Denies: neck pain or back pain Skin/Breast: Denies: rash Neuro: Denies: headache(s) PFSH ED PFSH: Medical History ADHD Urticaria, chronic Chronic diarrhea Anxiety Acute posterior anal fissure Surgical History No history of previous surgery Family History Denies family history of Anesthesia complication Bleeding disorder Social History Smoking and tobacco/nicotine status: never used tobacco/nicotine Alcohol intake: never Substance/Drug Use: never Physical Exam Const: COMMON NORMALS: no acute distress, patient oriented x3 and healthy appearing HENMT: COMMON NORMALS: normocephalic and atraumatic HEAD & SCALP: normocephalic and atraumatic Eye: COMMON NORMALS: Equal, round and reactive pupils present and EOMs intact bilaterally PUPIL: Yes Equal, round and reactive pupils present OTHER: Patient's pupils currently are responsive to light left pupils responsive to direct and consensual light. She does have pain when light is shown in her eye under fluorescein exam she does have a corneal ulcer to the inferior portion of her cornea intraocular pressures 20 mm per mercury Neck/C-Spine: COMMON NORMALS: full ROM and supple Chest: COMMONS NORMALS: normal inspection of the chest Resp: COMMON NORMALS: normal respiratory effort Cardio: COMMON NORMALS: regular rate, regular rhythm and No murmurs present (Cardio) RATE: regular rate RHYTHM: regular rhythm Extremity: COMMON NORMALS: normal to inspection and full ROM Neuro: COMMON NORMALS: patient oriented x3, moves all extremities and no focal motor deficits Psych: COMMON NORMALS: mental status grossly normal, Normal thought process present and cooperative THOUGHT PROCESS: Normal thought process present Skin: COMMON NORMALS: no rashes or lesions noted and no wounds GENERAL SKIN EXAM: no rashes or lesions noted Course Vital Signs: Vital signs: Vital Signs Temperature 97.8 F 12/08/23 19:38 Pulse Rate 83 12/08/23 19:38 Respiratory Rate 15 12/08/23 19:38 Blood Pressure 135/81 12/08/23 19:38 Pulse Oximetry 98 12/08/23 19:38 Oxygen Delivery Me thod Room Air 12/08/23 19:38 MDM - Eye Problem Medical Decision Making Patient does present here with eye pain fluorescein stain exam does show corneal ulcer did inform her not to wear contacts or glasses will start on TobraDex she had some pupil dilatation at home this could be a traumatic iritis CT scan here was normal she is to follow-up with ophthalmology and return if worsening she understands agrees to plan Lab Data Radiology Impressions Head CT 12/08/23 19:56 IMPRESSION: No acute intracranial abnormality. ASSESSMENT: ASPECTS ([place] Stroke Program Early CT Score) is 10. All radiology interpretation(s) finalized by discharge Discharge Plan Discharge Patient Disposition: Home Clinical Impression: Corneal ulcer of left eye, Dilated pupil Condition: Stable Prescriptions: New tobramycin-dexamethasone 0.3-0.1 % drops,suspension 1 drp ophthalmic (eye) Q6H 7 Days Qty: 10 0RF No Action triamcinolone acetonide 0.1 % cream 1 applic topical DAILY Qty: 30 6RF norgestimate-ethinyl estradiol [Lesley] 0.25-35 mg-mcg tablet 1 tab PO DAILY Qty: 84 3RF clindamycin phosphate 2 % cream 1 appful vaginal DAILY Qty: 40 0RF Rx Instructions: for 3 days ciprofloxacin HCl [Cipro] 500 mg tablet 500 mg PO BID 5 Days Qty: 10 0RF methylphenidate HCl [Concerta] 18 mg tablet extended release 24hr 18 mg PO DAILY 30 Days Qty: 30 0RF quetiapine [Seroquel] 25 mg tablet 25 mg PO DAILY Qty: 30 6RF sertraline 100 mg tablet 100 mg PO DAILY Qty: 30 6RF Discharge Orders: Discharge ED (Routine); Ordered 12/08/23 Ordered By: Leandro Rock Referrals: Sandip Guo MD [Physician] - 1-3 days Michael Huerta MD [Primary Care Provider] - Discharge Diet: Advance as tolerated Discharge Activity: Resume usual activity Patient Instructions: Corneal Ulcer (ED) Coding Level of Care Code ED [employer] for Rylee Harrison
[2023-12-08] MEDS: fluorescein 1 mg Strip EYE-RIGHT (20:27)
[2023-12-08] MEDS: tetracaine 0.5% Op Soln 4 mL Btl 1 DROP EYE-RIGHT (20:27)
[2023-12-08 20:51] VITALS: PULSE 76; RESP 16; O2SAT 98
== END 2023-12-08 20:52 | disposition home or self-care (01) ==
PROVIDERS: Emergency Provider Emergency Medicine; PCP Family Medicine
DX: H16.002 Unspecified corneal ulcer, left eye (principal); H57.04 Mydriasis
CPT/HCPCS: 70450; 99284

== ENCOUNTER 2024-03-15 11:19 | Emergency (ER) | payer OTHER, SELFPAY ==
[2024-03-15 11:45] VITALS: BP 108/74; PULSE 82; RESP 18; TEMP 36.6; O2SAT 98
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
[2024-03-15 13:57] LABS: Bilirubin Urine Negative (Negative); Blood Urine Negative (Negative); Glucose Urine UA Negative (Normal); Ketones Urine Negative (Negative); Leukocyte Esterase Urine Negative (Negative); Nitrate Urine Negative (Negative); Protein Urine Negative (Negative); Specific Gravity, Urine 1.008 (1.005-1.030); Urine Appearance Clear (CLEAR); Urine Color Yellow (Yellow); pH Urine 7.5 (5-7)
[2024-03-15 13:59] LABS: Add Urine Microscopic? YES; Bacteria Urine None Seen /hpf; Hyaline Casts Urine 0-4 /lpf; RBC Urine 0-2 /hpf (0-2); Squamous Epithelial Cell Urine 0-5 /hpf (0-5); WBC Urine 0-5 /hpf (0-5)
[2024-03-15 14:01] LABS: HCG Qualitative Urine. Negative (Negative)
--- NOTE | 2024-03-16 07:01 | PC.NURSE ---
Late Entry: Medication education was given to patient prior to administration. All questions from the patient were answered. No further needs at this time. Patient was again instructed to call the SANE team if there were any further needs or questions.
== END 2024-03-15 12:45 | disposition home or self-care (01) ==
PROVIDERS: Emergency Medicine; Emergency Provider Family Medicine
DX: T76.21XA Adult sexual abuse, suspected, initial encounter (principal)
CPT/HCPCS: 81001; 81025; 99283

== ENCOUNTER → 2024-03-15 12:37 | Outpatient (BNVA) | payer MEDICAID, SELFPAY | PROVIDERS: PCP Family Medicine; Visit Provider Family Medicine | DX: Z01.419 Encounter for gynecological examination (general) (routine) without abnormal findings (principal) | CPT/HCPCS: 87624 ==

== ENCOUNTER → 2024-05-11 16:58 | Outpatient (BNVA) | payer SELFPAY | PROVIDERS: PCP Family Medicine; Visit Provider Registered Nurse Neonatal Intensive Care | DX: R39.9 Unspecified symptoms and signs involving the genitourinary system (principal) | CPT/HCPCS: 81000 ==

== ENCOUNTER → 2024-08-04 10:46 | Outpatient (BNVA) | payer SELFPAY | PROVIDERS: PCP Family Medicine; Visit Provider Family Medicine | DX: Z00.00 Encounter for general adult medical examination without abnormal findings (principal); N92.6 Irregular menstruation, unspecified; Z51.81 Encounter for therapeutic drug level monitoring | CPT/HCPCS: 80053; 80074; 83002; 84146; 84439; 84443; 84702; 85025; 86592; 87806 ==

== ENCOUNTER → 2025-05-02 17:44 | Outpatient (BNVA) | payer SELFPAY | PROVIDERS: Visit Provider Nurse Practitioner | DX: R50.9 Fever, unspecified (principal) | CPT/HCPCS: 87400; 87426 ==